=== PATIENT | male | born 1995 | race Hispanic/Latino ===

== ENCOUNTER 2025-03-18 13:40 | Emergency (ER) | payer OTHER, SELFPAY ==
[2025-03-18 13:42] VITALS: BP 115/68
[2025-03-18 13:51] VITALS: BMI 19.5
--- NOTE | 2025-03-18 14:54 | ED.GENMED ---
History of Present Illness
General
Chief Complaint: Musculo-Skeletal Complaint
Source: patient
Exam Limitations: none
Time Seen by Provider: 03/18/25 14:18
Nursing documentation reviewed up to this point in time: agreed with
History of Present Illness
History of Present Illness:
Patient is a 29-year-old male who presents to the ER for evaluation. Patient reports on Monday 2 days ago he had some numbness and tingling in his right calf area and right lateral lower leg and then noticed he was able to properly heel-toe walk.
When he would strike his right heel his toes were automatically fall.
He denies any injury or back pain.
He denies any loss of bowel or bladder. He denies any lower extremity swelling. Denies any saddle paresthesias .
Review of Systems
Review of Systems
Allergies reviewed?: Yes
All Other Systems: ROS reviewed and negative except as documented in HPI and ROS
Constitutional: Reports no symptoms
Respiratory: Reports no symptoms
Cardiac: Reports no symptoms
ABD/GI: Reports no symptoms
: Reports no symptoms; Denies incontinence
Musculoskeletal: Reports no symptoms
Skin: Reports no symptoms
Neurological: Reports other (numbness /tingling to right lateral lower leg with foot drop complaints )
Psychiatric: Reports no symptoms
Phy Exam
General Physical Exam
General Presentation: no apparent distress
General age: appears stated age
General Skin: warm and dry
General Habitus: normal
General Mental: alert
General Hydration: appears well hydrated
Cardiovascular Exam
Cardiovascular Exam: regular rate/rhythm, no murmur and normal peripheral pulses
Pulmonary Exam
Pulmonary Exam: lungs clear and no respiratory distress
Neurological Exam
Neurological Exam: alert, oriented x3, no sensory deficits and other (pt with slight weakness to right foot dorsiflexion ; nml patellar reflexes b/l )
Musculoskeletal Exam
Musculoskeletal Exam: full ROM
Skin Exam
Skin Exam: normal color and warm/dry
Psychiatric Exam
Psychiatric Exam: normal mood/affect
Course
Orders/Labs/Results
Orders:
Orders
03/18/25 15:36
CT Head W/o Iv Contrast Urgent
Comment:
Reason For Exam: right foot drop
Vital Signs
Initial and Last Documented VS:
Initial Vital Signs
Temp Pulse Resp BP Pulse Ox
98.4 F 73 16 115/68 100
03/18/25 13:42 03/18/25 13:42 03/18/25 13:42 03/18/25 13:42 03/18/25 13:42
Last Documented Vital Signs
Temp Pulse Resp BP Pulse Ox
98.4 F 73 16 115/68 100
03/18/25 13:42 03/18/25 13:42 03/18/25 13:42 03/18/25 13:42 03/18/25 13:42
Director Of Adult Epilepsy consulted with Physician
Director Of Adult Epilepsy consulted with physician?: Yes
Name of Physician Consulted: Malena
MDM/Problems Addressed
Differential Diagnosis Includes:
foot drop
MDM/Problems Addressed:
As documented patient is a 29-year-old male who presented with right lateral lower leg numbness and tingling and recently noticed foot drop. Patient is able to walk on his heels however his toe on the right dropped down on its own. He has slight
weakness in dorsiflexion of his right lower extremity. He has normal reflexes denies any bowel or bladder incontinence denies any trauma or back pain. Case discussed with neurology who evaluated patient feels the patient has right peroneal
neuropathy at the fibular head. CAT scan was ordered and recommended but patient decided to sign out against medical advice and does not wait for the CAT scan. He was however as instructed by neurology given neurology's information for follow-up
along with physical therapy. He was to avoid crossing his legs and no driving until cleared by neurology (this was discussed with neurology ) Blood work was recommended however pt declines.
*Pulse Oximetry
Patient hypoxic: no
*Critical Care Note
Total Time (30-74mins, 75-104mins- exclusive of procedures): Not Applicable
Patient Management
Discussion with other providers: Bristle Machine Operator (neuro Dr. Mobley )
ED Attending Note
-
Portions of this chart may have been created with voice recognition software.� Occasional wrong word or��sound alike� substitutions may have occurred due to the inherent limitations of voice recognition software.
Discharge Plan
Departure
Patient Disposition: Against Medical Advice
Date of Disposition: 03/18/25
Time of Disposition: 17:18
Patient with high blood pressure during this ER visit?: No
Condition: Fair
Covid-19: Not Applicable
Discharge Problem:
Numbness and tingling of right leg, Foot drop, right
Referrals:
Lynda Mobley MD [Active] -
NONE,* [Family Provider] -
Activity Restrictions/Additional Instructions:
As discussed it was recommended that you get a CAT scan, and you have chosen to leave prior to this testing.
Please follow-up with neurology
call the office to get an appointment as soon as possible.
In addition was recommended that you start physical therapy.
you were given a prescription for this
return if any worsening of symptoms if increasing symptoms, right leg weakness numbness tingling worsening of difficulty walking or any further concerns.
Interventions
Interventions:
*Risk Screen - Suicide Last Done: 03/18/25 13:42
*General Assessment Last Done: 03/18/25 13:42
*Neglect/Abuse Screening Last Done: 03/18/25 13:42
*ED COVID-19 Vaccine History Last Done: 03/18/25 13:51
*Nursing Disposition Last Done: 03/18/25 17:26
ED-Musculoskeletal Assessment Last Done: 03/18/25 13:51
Discharge Date and Time
Discharge Date/Time: 03/18/25 17:28
Print Language: [place]AST [place]
--- NOTE | 2025-03-18 16:44 | CON.NEURO ---
Consultation
Order
Date of Consultation: 03/18/25
Requesting Provider: Leni Farias
Reason for Consult: Right foot drop
Neurology Consultation Note.
HPI: This is a 29-year-old right-handed man who presented to [facility] on March 18, 2025 with motor and sensory deficits.
According to the patient he developed tingly sensation and numbness in his right lateral lower leg and dorsum of the foot foot on Monday. The patient reports that he started wearing a new pair of BRUNT boots (6 inches tall) last , wearing
them for three consecutive days. On Monday, he noticed his toes, particularly the big toe, felt slightly numb and tingly. He also observed that his foot seemed to fall asleep faster when lying down.
No reports of radicular back pain, change in vision, strength, change in sphincter function, right arm involvement or history of transient neurological deficits in the past.
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 The patient acknowledges that he frequently crosses his legs. The patient mentions being at a lower weight than he should be, but states there has been no
significant recent weight loss.
ER VS: 115/68, 73, 16, 30 6.9C
EKG: Not available
PDMP:none
Labs: not available
PMH: no established medical care.
PSH:none
SH: Lives with girlfriend, vapes, no history excessive alcohol use.
FH: No family history of SOCCER COMMENTATOR demyelinating disease, grandmother�dementia
All:NKDA
ROS: Constitutional: Negative. Negative for chills, fever and unexpected weight change.
HENT: Negative for ear pain, hearing loss, tinnitus and trouble swallowing.
Eyes: Negative. Negative for photophobia, pain and visual disturbance.
Respiratory: Negative for cough, choking and shortness of breath.
Cardiovascular: Negative for chest pain, palpitations and leg swelling.
Gastrointestinal: Negative for abdominal pain and vomiting.
Endocrine: Negative. Negative for cold intolerance.
Genitourinary: Negative for dysuria, flank pain and urgency.
Musculoskeletal: Negative for back pain, gait problem, neck pain and neck stiffness.
Skin: Negative for rash.
Allergic/Immunologic: Negative. Negative for immunocompromised state.
Neurological: Positive for paresthesias in the lateral right lower leg and dorsum of the foot, right foot
Psychiatric/Behavioral: Negative for behavioral problems, confusion and hallucinations.
General: Well developed. In no acute distress.
Cardio: Regular rate and rhythm without murmur. Extremities are without cyanosis or edema.
Neuro:
Mental Status: Alert, oriented to person, place, and date. Normal attention and recall. Good fund of knowledge. Follows complex requests across the midline. Comprehension, naming, and repetition intact. Immediate and delayed recall 3/3.
Cranial Nerves: Pupils are equally round and reactive to light. EOMs full. Visual sarmiento full to confrontation. No ptosis. No nystagmus. V1-V3 intact to light touch and pinprick bilaterally, symmetric. Face symmetric. Normal hearing AU. The
palate elevated well. SCMs and traps 5/5. Tongue midline. No dysarthria.
Motor: Normal bulk and tone. No pronator or arm drift. Strength 5/5 throughout except for right EHL and dorsiflexion�4 out of 5. Right inversion and eversion�5 out of 5. No clonus.
Reflexes: 2+ throughout the upper extremities and knees. 2/2 in AJs. Plantar responses flexor bilaterally.
Sensory: Normal vibration at the toes.
Coordination: No dysmetria or tremor.
Gait: Mild right steppage gait.
Assessment and Plan:
I. 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 Differential diagnosis includes right sciatic neuropathy vs L5 radiculopathy, less likely lumbar plexopathy.
II. Vaping disorder
- Fall precautions
- PT
- Avoiding crossing legs
- No driving until cleared by neurology
- OP NCS/EMG of BL LEs in 3 weeks from symptom onset
- Vaping cessation was discussed
- CT head wo contrast
- Please check CBC, comp, vitamin B12, folate, thiamine, ESR, CRP
- Outpatient neurology follow-up
I personally reviewed all radiology and labs along with past medical records pertinent to current medical problems. Total time spent in patient care is 60 minutes.
Thank you for allowing us to participate in the care of this patient. We will continue to follow. Please do not hesitate to contact us with any questions or concerns.
Subjective/Objective
Subjective Data
Date of Service: March 18, 2025
Objective Data
Vital Signs
Temp Pulse Resp BP Pulse Ox
36.9 C 73 16 115/68 100
03/18/25 13:42 03/18/25 13:42 03/18/25 13:42 03/18/25 13:42 03/18/25 13:42
Patient Allergies
No Known Allergies Allergy (Verified 03/18/25 13:45)
== END 2025-03-18 17:28 | disposition left against medical advice (07) ==
LOC: EMR 13:40
PROVIDERS: EMERGENCY PHYSICIAN Emergency Medicine
DX: G57.31 Lesion of lateral popliteal nerve, right lower limb (principal); M21.371 Foot drop, right foot; Z53.29 Procedure and treatment not carried out because of patient's decision for other reasons
CPT/HCPCS: 99282